=== PATIENT | female | born 1950 | race Two or more races ===

== ENCOUNTER 2017-02-15 01:06 | Observation (INO) | payer MEDICARE, OTHER ==
[~2017-02-15] VITALS: Ht 165.1 cm; Wt 80.7 kg
--- NOTE | ~2017-02-15 | CT16 ---
[facility] A Service of [facility] RADIOLOGY TEXT RESULTS PATIENT: CHRIS RIVERA LOCATION: [facility] 55-01 : [birth year] UNIT #: [id number] AGE: [address]: Genaro Nj MD SEX: F ORDER DR: [id number] [facility] [address] [place], [place] [address] [id number] I MR#: [id number] #: [id number] NAME: CHRIS RIVERA : 1950 SEX: F STUDY DATE/TIME: 02/15/2017 3:41 UNIT: [facility] ROOM: [facility] STUDY DESCRIPTION: CT Angio Chest for PE Attending Physician: Genaro Nj M.D. Ordering Physician: Chris Pack M.D. Primary Care Physician: Sarah Marc M.D. MEDICAL IMAGING REPORT This report is preliminary unless electronic signature is present EXAM CT chest with contrast, pulmonary arteriography protocol, 02/15/2017 HISTORY 66-year-old female in the ED with 1-day history of left side chest pain and shortness of air. Chest x-ray showing evidence of vascular congestion with mild interstitial edema. TECHNIQUE CT examination of the chest with IV contrast using pulmonary arteriography protocol. CTA images of the pulmonary arteries were reformatted as multiplanar MIP images. This CT exam was performed with one or more of the following radiation dose reduction techniques: automatic exposure control, adjustment of mA and/or kV according to patient size, and iterative reconstruction. FINDINGS No pulmonary embolism is demonstrated. Thoracic aorta is normal in caliber with no aneurysm or dissection. Mild cardiomegaly. No pericardial effusion. The lung images show mild diffuse interstitial and alveolar pulmonary edema, greatest in the lung bases along with tiny bilateral pleural effusions. Cardiogenic edema is likely. Mildly enlarged lymph nodes throughout the mediastinum and pulmonary efrain are nonspecific but are likely enlarged on the basis of lymphatic engorgement given the pulmonary findings. IMPRESSION 1. No evidence of pulmonary embolism. 2. Normal caliber thoracic aorta. 3. Mild cardiomegaly. No pericardial effusion. [facility] A Service of [facility] & [facility] RADIOLOGY TEXT RESULTS PATIENT: CHRIS RIVERA LOCATION: [facility] : [birth year] UNIT #: [id number] AGE: [address]: Genaro Nj MD SEX: F ORDER DR: 4. Mild diffuse interstitial and alveolar pulmonary edema with tiny bilateral pleural effusions. Congestive heart failure is favored. 5. Nonspecific mediastinal and hilar lymph node enlargement. This is likely on the basis of lymphatic engorgement given the cardiopulmonary findings. Similar findings were present on the previous study of 05/10/2015. Dictated by... Codey Ortega M.D. THIS IS AN ELECTRONICALLY VERIFIED REPORT Codey Ortega M.D. at 02/15/2017 9:58 PM Miri TD: 02/15/2017 10:47 JOB #: [id number] MEDICAL IMAGING REPORT Page 1 of 1 COPY
--- NOTE | ~2017-02-15 | EKG ---
PATIENT: CHRIS RIVERA UNIT #: [id number] Ventricular Rate: 60 BPM Atrial Rate: 57 BPM QRS Duration: 96 ms Q-T Interval: 438 ms QTC Calculation(Bezet): 438 ms Calculated R [place]: -16 degrees Calculated T [place]: 41 degrees Diagnosis Line: Atrial fibrillation Diagnosis Line: Low voltage QRS Diagnosis Line: Septal infarct , age undetermined Diagnosis Line: Abnormal ECG Diagnosis Line: No previous ECGs available Diagnosis Line: Confirmed by CINDY GRIFFITHS MD ([id number]) on 02/15/2017 Diagnosis Line: 7:17:23 PM INTERPRETING MD: AYE MILLER
--- NOTE | ~2017-02-15 | TH ---
Unit #: [id number] #: [id number] Patient: CHRIS RIVERA [id number] [address] [address] [id number] I MR#: [id number] NAME: CHRIS RIVERA : 1950 SEX: F STUDY DATE/TIME: 02/15/2017 UNIT: C5B ROOM: 559 STUDY DESCRIPTION: Nuclear Study Attending Physician: Genaro Nj M.D. Primary Care Physician: Sarah Marc M.D. CARDIOLOGY REPORT EXAM Lexiscan Cardiolite Stress Test - Nuclear Portion PROCEDURE Using technetium 99m labeled Cardiolite, rest and stress SPECT images were obtained. Multiple SPECT images were obtained in various views including horizontal and vertical long axis and short axis views of the left ventricle. Images were obtained by gated SPECT method. The patient was administered 11.11 mCi of Cardiolite at rest. The patient was administered 36.0 mCi of Cardiolite after Lexiscan infusion was completed. On the stress images, there is normal perfusion noted. The rest images show normal perfusion. Comparing rest and stress images, there is no stress-induced ischemia noted. The left ventricular ejection fraction is calculated to be 69%. There is no focal wall motion abnormality seen. CONCLUSION 1. No stress-induced ischemia noted. 2. The left ventricular ejection fraction is calculated to be 69%. 3. There is no focal wall motion abnormality seen. 4. Normal Lexiscan Cardiolite stress test. Dictated by... Tamiko Perera TD: 02/16/2017 06:24 JOB #: [id number] Unit #: [id number] #: [id number] Patient: CHRIS RIVERA CARDIOLOGY REPORT Page 1 of 1 X Noemi Rosenberg MD <ELECTRONICALLY SIGNED> 03/29/17 1524 CARDIOLOGY REPORT
--- NOTE | ~2017-02-15 | DS ---
Unit #: [id number] #: [id number] Patient: CHRIS RIVERA [id number] [address] [place], [place] [address] [id number] I MR#: [id number] NAME: CHRIS RIVERA ROOM: 559 Age: 66 Sex: F Admission Date: 02/15/2017 : 1950 Discharge Date: Attending Physician: Genaro Nj M.D. Primary Care Physician: Sarah Marc M.D. DISCHARGE SUMMARY SHORT STAY SUMMARY HISTORY OF PRESENT ILLNESS This is a 66-year-old [place]nian female who has been seen in the past by Dr. Rosenberg, although she never followed up in the office with her. She has a past history of permanent atrial fibrillation, hypertension, diabetes mellitus, hyperlipidemia, depression, and a thoracentesis in 2009 which was negative for malignancy. She also has a history of a Lexiscan Cardiolite stress test in December 2013 which was normal and an echocardiogram in December 2013 which showed an EF of 60%, mild TR, and mild to moderate mitral regurgitation. In addition, she has a history of diastolic congestive heart failure. She presented to the ER today with reports of chest pain lasting for about 45 minutes. She states the pain resolved on its own. She denied any radiating or any pain in her jaw or neck, and denied associated symptoms of shortness of breath or diaphoresis with the pain. She does have some dyspnea on exertion. A chest x-ray revealed mild cardiomegaly with some pulmonary edema. Her BNP was 172. Point of care troponin was less than 0.05, and her EKG was negative for ischemic changes. PAST MEDICAL HISTORY 1. Permanent atrial fibrillation, not on anticoagulation. 2. Hypertension. 3. Chronic diastolic congestive heart failure with an EF of 60% per echo in 2013. 4. Diabetes mellitus. 5. Hyperlipidemia. 6. Depression. 7. Lifetime nonsmoker. 8. Thoracentesis in 2009 negative for malignancy. 9. Negative Lexiscan stress test in December 2013. PAST SURGICAL HISTORY Right knee surgery. FAMILY HISTORY She denies a family history of premature coronary artery disease. SOCIAL HISTORY She is a lifetime nonsmoker. Denies alcohol and illicit drug use. She is Bosnian and speaks minimal Iraqi. The cardiac monitor technician phone was used to obtain the majority of the data. ALLERGIES Unit #: [id number] #: [id number] Patient: CHRIS RIVERA No known drug allergies. HOME MEDICATIONS 1. Atenolol 25 mg p.o. once daily. 2. Lisinopril 40 mg p.o. once daily. 3. Atorvastatin calcium 80 mg p.o. once daily. 4. Basaglar KwikPen 10 units once daily. 5. Donepezil hydrochloride 10 mg p.o. once daily. 6. Lasix 20 mg p.o. twice daily. 7. Paroxetine hydrochloride 20 mg p.o. once daily. 8. Metformin hydrochloride ER 1000 mg p.o. twice daily. 9. Norvasc 5 mg p.o. once daily. 10. Zofran ODT 4 mg p.o. every 8 hours as needed for nausea. REVIEW OF SYSTEMS A 10-point review of systems was conducted and was otherwise negative except for what was stated in the HPI. She denies palpitations, dizziness, lightheadedness, or diaphoresis. Positive for intermittent chest tightness, shortness of breath, and dyspnea on exertion. PHYSICAL EXAMINATION VITAL SIGNS: Temperature 98.7, heart rate 52, respirations 20, blood pressure 148/87, and O2 saturations 93% on 3 liters. GENERAL: This is a pleasant [place] female resting in bed in no acute distress. HEENT: Head is atraumatic and normocephalic. Pupils are equal and reactive to light. Mucous membranes are moist and intact. NECK: Supple. Trachea is midline. No JVD. LUNGS: Clear and diminished in bases. Nonlabored respirations. CARDIOVASCULAR: Heart sounds S1 and S2, irregularly irregular rhythm. No significant murmurs, rubs, or gallops. ABDOMEN: Soft, nontender, and nondistended. EXTREMITIES: Pulses are palpable. No pedal edema. No cyanosis. NEUROLOGIC: Alert and oriented x3. Moves all extremities equally and follows commands without difficulty. DIAGNOSTIC STUDIES LABORATORY: Sodium 139, potassium 4, chloride 101, BUN 10, creatinine 0.6, glucose 151, magnesium 1.4, AST 43, ALT 55, and alkaline phosphatase 50. BNP 172. Point of care troponin less than 0.05. Lipid profile: Cholesterol 175, triglycerides 136, LDL 103, and HDL 45. IMAGING: Chest x-ray shows mild cardiomegaly with vascular congestion. CT of the chest is negative for PE. It shows mild cardiomegaly and no pericardial effusion. Mild diffuse interstitial and alveolar pulmonary edema with tiny bilateral pleural effusions. CARDIOLOGY: EKG shows atrial fibrillation with a ventricular rate of 60 and nonspecific T wave abnormalities. ASSESSMENT 1. Permanent atrial fibrillation with controlled ventricular rate, not on anticoagulation. 2. Hypomagnesemia. 3. Chest pain, likely musculoskeletal. 4. Acute on chronic diastolic congestive heart failure, mild. 5. Diabetes mellitus. 6. Hypertension. Unit #: [id number] #: [id number] Patient: CHRIS RIVERA 7. Hyperlipidemia. PLAN 1. We will replace magnesium. 2. Continue statin and home antihypertensives. 3. Gently diurese with one dose of Lasix IV. 4. CHADS2-VASc score is greater than 4. We will start on Xarelto. We will ask Care Management to establish cost to patient. 5. A Lexiscan Cardiolite exercise stress test was conducted to rule out ischemic heart disease. The test was normal with no inducible ischemia per Dr. Rosenberg. 6. The patient's chest pain is resolved and has had no recurrence. She diuresed well with the Lasix and denies any shortness of breath or dyspnea on exertion. No signs of fluid overload. She is stable and ready for discharge home. We will discharge her home on an increased dose of Lasix. She has been given prescriptions for Xarelto and Lasix 40 mg once daily. 7. She is to follow up with Dr. Rosenberg in four to six weeks on April 04 at 1 p.m. 8. She is to follow up with her primary care physician in one to two weeks. DISPOSITION Discharge to home. CONDITION ON DISCHARGE Stable. Dictated by... Roselyn Pandey APRN for Tamiko Mcclellan TD: 02/15/2017 16:41 JOB #: [id number] DISCHARGE SUMMARY Page 1 of 1 X X DISCHARGE SUMMARY
--- NOTE | ~2017-02-15 | ST ---
Unit #: [id number] #: [id number] Patient: CHRIS RIVERA [id number] [address] [address] [id number] I MR#: [id number] NAME: CHRIS RIVERA : 1950 SEX: F STUDY DATE/TIME: 02/15/2017 UNIT: C5B ROOM: 559 STUDY DESCRIPTION: Stress Test Attending Physician: Genaro Nj M.D. Primary Care Physician: Sarah Marc M.D. CARDIOLOGY REPORT EXAM EKG Portion of a Lexiscan Cardiolite Stress Test REASON FOR EXAM Chest pain. DESCRIPTION Baseline EKG is A-fib with a ventricular rate of 59 and nonspecific T wave abnormalities. A total of 0.4 mg of Lexiscan was injected per protocol followed by Cardiolite. The patient's did not experience any symptoms. There were no significant ST changes or arrhythmias. The test was stopped due to protocol completion. IMPRESSION 1. This is a nondiagnostic test. 2. There were no ST segment changes. 3. The patient experienced no symptoms. 4. There were no arrhythmias. 5. Please correlate with Cardiolite imaging. Dictated by... Roselyn Pandey APRN for Tamiko Perera/maxine TD: 02/16/2017 06:00 JOB #: [id number] CARDIOLOGY REPORT Page 1 of 1 X CARDIOLOGY REPORT
--- NOTE | ~2017-02-15 | CR72 ---
[facility] A Service of [facility] & [facility] RADIOLOGY TEXT RESULTS PATIENT: CHRIS RIVERA LOCATION: [place] [id number] : [birth year] UNIT #: [id number] AGE: [address]: Genaro Nj MD SEX: F ORDER DR: [id number] [facility] [address] [facility]. [place], [place] [address] [id number] I MR#: [id number] Acc #: [id number] NAME: CHRIS RIVERA : 1950 SEX: F STUDY DATE/TIME: 02/15/2017 2:36 UNIT: [facility] ROOM: [facility] STUDY DESCRIPTION: CR Chest Single View Portable Attending Physician: Genaro Nj M.D. Ordering Physician: Chris Pack M.D. Primary Care Physician: Sarah Marc M.D. MEDICAL IMAGING REPORT This report is preliminary unless electronic signature is present EXAM Chest x-ray, 02/15/2017. HISTORY 66-year-old female in the ED complaining of a 3-4-day history of shortness of air, congestion and weakness.. TECHNIQUE AP portable chest x-ray. FINDINGS Mild cardiomegaly. Pulmonary venous redistribution and mild diffuse interstitial prominence suggests mild vascular congestion that is new or increased since the previous study of 05/21/2015. Probable trace bilateral pleural effusions. Shallow lung expansion. No visible airspace consolidation. IMPRESSION Cardiomegaly with likely mild vascular congestion. Dictated by... Codey Ortega M.D. THIS IS AN ELECTRONICALLY VERIFIED REPORT Codey Ortega M.D. at 02/15/2017 9:58 PM RGW/sagarw TD: 02/15/2017 10:35 JOB #: [id number] MEDICAL IMAGING REPORT [facility] A Service of [facility] RADIOLOGY TEXT RESULTS PATIENT: CHRIS RIVERA LOCATION: [place] [address] : [birth year] UNIT #: [id number] AGE: [address]: Genaro Nj MD SEX: F ORDER DR: Page 1 of 1 COPY
[~2017-02-15 01:06] MED LIST: AMLODIPINE BESYL5 MG PO; ASPIRIN PO; ATENOLOL PO; ATENOLOL25 MG PO; AVANDIA PO; DIABETA5 M1 PO; GLYNASE PO; HCTZ PO; HYDROCHLOROTHIA25 MG PO; K-DUR10 MEQ PO; LASIX20 MG PO; LEVAQUIN PO; LEVAQUIN750 M1 PO; LIPITOR PO; LIPITOR80 MG PO; LISINOPRIL PO; MELOXICAM15 MG PO; METFORMIN HCL1000 M1 PO; METFORMIN PO; NIASPAN PO; NORVASC PO; PAXIL PO; PRINIVIL40 MG PO; XARELTO20 MG PO
[2017-02-15 02:51] LABS: BASOPHIL# 0.1 X10e3 (0-0.3); BASOPHIL% 1.3 % (0-2.5); EOSINOPHIL# 0.1 X10e3 (0-0.7); EOSINOPHIL% 1.5 % (0.0-7.0); HEMATOCRIT 38.3 % (35.0-45.0); HEMOGLOBIN 12.7 gm/dL (12.0-16.0); LYMPHOCYTE# 2.1 X10e3 (1.0-3.5); LYMPHOCYTE% 27.6 % (17.0-45.0); MEAN CELL VOLUME 85.5 FL (83-96); MEAN CORPUSCULAR HEMOGLOBIN 28.4 PG (28-34); MEAN CORPUSCULAR HGB CONC 33.2 g/dL (30-36); MEAN PLATELET VOLUME 8.4 FL (6.5-11.5); MONOCYTE# 0.7 X10e3 (0-1.0); MONOCYTE% 9.1 % (3.0-12.0); NEUTROPHIL# 4.6 X10e3 (1.5-7.1); NEUTROPHIL% 60.5 % (40-75); PLATELET COUNT 327 X10e3 (140-420); RED BLOOD COUNT 4.48 X10e (3.90-5.30); WHITE BLOOD COUNT 7.6 X10e3 (4.0-10.5)
[2017-02-15 02:52] LABS: DIFF IND NO
[2017-02-15 02:58] LABS: POC - CKMB 5.2 ng/mL (0.0-7.9); POC - TROPONIN <0.05 ng/mL (<=0.05)
[2017-02-15 03:04] LABS: INR 1.2; PARTIAL THROMBOPLASTIN TIME 26.4 SECONDS (23.5-31.3); PROTHROMBIN TIME (PATIENT) 12.6 SECONDS (10.0-11.7)
[2017-02-15 03:25] LABS: ALBUMIN SERUM 3.2 g/dL (3.5-5.0); BILIRUBIN, DIRECT 0.1 mg/dL (0.0-0.2); BILIRUBIN,INDIRECT 0.5 mg/dL (0.0-0.9); BILIRUBIN,TOTAL 0.6 mg/dL (0.2-2.0); BUN/CREATININE RATIO 16.66; CALCIUM SERUM 9.1 mg/dL (8.4-10.2); CREATININE SERUM 0.6 mg/dL (0.6-1.4); GLOM FILT RATE Estimated 94.3 mL/min (>60); MAGNESIUM 1.4 mg/dL (1.6-3.0); PROTEIN TOTAL SERUM 7.5 g/dL (6.0-8.3)
[2017-02-15 05:38] LABS: POC - TROPONIN <0.05 ng/mL (<=0.05)
[2017-02-15 06:15] LABS: POC - TROPONIN <0.05 ng/mL (<=0.05)
[2017-02-15] MEDS ORDERED: PRINIVIL40 MG PO (06:23)
[2017-02-15] MEDS ORDERED: TENORMIN25 MG PO (06:23)
[2017-02-15] MEDS ORDERED: BASAGLAR K100 UNIT/1 SUBQ (06:23)
[2017-02-15] MEDS ORDERED: ATORVASTATIN CA80 MG PO (06:23)
[2017-02-15] MEDS ORDERED: LASIX20 MG PO (06:24)
[2017-02-15] MEDS ORDERED: PAROXETINE HCL20 MG PO (06:24)
[2017-02-15] MEDS ORDERED: DONEPEZIL HCL10 MG PO (06:24)
[2017-02-15] MEDS ORDERED: ZOFRAN ODT4 MG PO (06:25)
[2017-02-15] MEDS ORDERED: METFORMIN HCL1000 M1 PO (06:25)
[2017-02-15] MEDS ORDERED: NORVASC PO (06:25)
[2017-02-15 09:45] LABS: CHOLESTEROL 175 mg/dL (0-200); HDL CHOLESTEROL 45 mg/dL (35-95); LDL CHOLESTEROL 103 mg/dL (-130); LDL/HDL RATIO 2 RATIO (0-4); TRIGLYCERIDES 136 mg/dL (10-160)
[2017-02-15] MEDS ORDERED: FUROSEMIDE40 MG PO (15:52)
[2017-02-15] MEDS ORDERED: MAG-OX 400400 M1 PO (16:02)
[2017-02-15] MEDS ORDERED: XARELTO20 MG PO (16:03)
== END 2017-02-15 17:15 | disposition home or self-care (01) ==
LOC: CED 01:06 → CEDOF 05:01 → CED 05:01 → CEDOF 05:30 → C5B 08:10
PROVIDERS: Emergency Medicine; Internal Medicine Cardiovascular Disease
DX: I48.2 Chronic atrial fibrillation (principal); R07.9 Chest pain, unspecified; I11.0 Hypertensive heart disease with heart failure; I50.33 Acute on chronic diastolic (congestive) heart failure; E83.42 Hypomagnesemia; I51.7 Cardiomegaly; J90 Pleural effusion, not elsewhere classified; J81.1 Chronic pulmonary edema; R59.0 Localized enlarged lymph nodes; E11.9 Type 2 diabetes mellitus without complications; Z79.84 Long term (current) use of oral hypoglycemic drugs; E78.5 Hyperlipidemia, unspecified; Z79.899 Other long term (current) drug therapy; Z98.890 Other specified postprocedural states; F32.9 Major depressive disorder, single episode, unspecified
CPT/HCPCS: 36415; 71010; 71275; 78452; 80048; 80061; 80076; 82553; 83735; 83880; 84484; 85025; 85610; 85730; 90732; 93005; 93017; 99285; A9500; G0009; G0378; J1940; J2785; Q9967

== ENCOUNTER 2017-02-17 19:10 | Emergency (ER) | payer MEDICARE, OTHER ==
--- NOTE | ~2017-02-17 | US85 ---
[facility] A Service of [facility] RADIOLOGY TEXT RESULTS PATIENT: CHRIS RIVERA LOCATION: [place] : [birth year] UNIT #: [id number] AGE: [address]: Mike Brannon MD SEX: F ORDER DR: [id number] [facility] [address] [place], [place] [address] [id number] E MR#: [id number] Acc #: [id number] NAME: CHRIS RIVERA : 1950 SEX: F STUDY DATE/TIME: 02/17/2017 22:06 UNIT: [place] ROOM: STUDY DESCRIPTION: [employer] Attending Physician: Lui Brannon M.D. Ordering Physician: Curt Santillan M.D. Primary Care Physician: Sarah Marc M.D. MEDICAL IMAGING REPORT This report is preliminary unless electronic signature is present EXAM Left lower extremity venous duplex Doppler. INDICATION Left lower extremity pain and foot swelling for 1 week. COMPARISON None available. TECHNIQUE Venous ultrasound examination of the left lower extremity was performed using grayscale, spectral Doppler and color flow Doppler imaging. FINDINGS The examination is negative. There is no evidence of left lower extremity deep venous thrombus from the groin to the lower calf. Visualized greater saphenous vein is also patent. IMPRESSION Negative examination. No evidence of left lower extremity deep venous thrombosis. Dictated by... Edmond Levy M.D. THIS IS AN ELECTRONICALLY VERIFIED REPORT Edmond Levy M.D. at 02/18/2017 7:52 PM Mustapha/noe TD: 02/18/2017 19:22 JOB #: [id number] [facility] A Service of [facility] RADIOLOGY TEXT RESULTS PATIENT: CHRIS RIVERA LOCATION: [place] : [birth year] UNIT #: [id number] AGE: [address]: Mike Brannon MD SEX: F ORDER DR: MEDICAL IMAGING REPORT Page 1 of 1 COPY
--- NOTE | ~2017-02-17 | CR20 ---
[facility] A Service of [facility] RADIOLOGY TEXT RESULTS PATIENT: CHRIS RIVERA LOCATION: [facility] : [birth year] UNIT #: [id number] AGE: [address]: Mike Brannon MD SEX: F ORDER DR: [id number] [facility] [address] [place], [place] [address] [id number] E MR#: [id number] Acc #: [id number] NAME: CHRIS RIVERA : 1950 SEX: F STUDY DATE/TIME: 02/17/2017 20:43 UNIT: [facility] ROOM: STUDY DESCRIPTION: CR Ankle Min 3 Views Lt Attending Physician: Lui Brannon M.D. Ordering Physician: Ed Jacobo Santillan M.D. Primary Care Physician: Sarah Marc M.D. MEDICAL IMAGING REPORT This report is preliminary unless electronic signature is present EXAM Left ankle. INDICATION Left ankle pain and swelling. FINDINGS Three views of the left ankle without comparison. There is no acute fracture or dislocation. Alignment is anatomic. There is no foreign body. There is some soft tissue swelling. IMPRESSION Negative left ankle. Dictated by... Edmond Levy M.D. THIS IS AN ELECTRONICALLY VERIFIED REPORT Edmond Levy M.D. at 02/18/2017 7:51 PM NOLAN/noe TD: 02/18/2017 18:53 JOB #: [id number] MEDICAL IMAGING REPORT Page 1 of 1 COPY
--- NOTE | ~2017-02-17 | CR72 ---
[facility] A Service of [facility] & [facility] RADIOLOGY TEXT RESULTS PATIENT: CHRIS RIVERA LOCATION: [facility] : [birth year] UNIT #: [id number] AGE: [address]: Mike Brannon MD SEX: F ORDER DR: [id number] [facility] [address] [place], [place] [address] [id number] E MR#: [id number] Acc #: [id number] NAME: CHRIS RIVERA : 1950 SEX: F STUDY DATE/TIME: 02/17/2017 2313 UNIT: [facility] ROOM: STUDY DESCRIPTION: CR Chest Single View Portable Attending Physician: Lui Brannon M.D. Ordering Physician: Lui Brannon M.D. Primary Care Physician: Sarah Marc M.D. MEDICAL IMAGING REPORT This report is preliminary unless electronic signature is present EXAM Portable chest, 02/17 at 2313. INDICATION Cough, congestion and shortness of air started today. FINDINGS AP portable chest compared with 02/15/2017. Heart remains enlarged. There is vascular congestion and presumed pulmonary edema. Findings are relatively stable. There are small bilateral pleural effusions. No pneumothorax. Dictated by... Luis Antonio Ceron Jr., M.D. THIS IS AN ELECTRONICALLY VERIFIED REPORT Luis Antonio Ceron Jr., M.D. at 02/19/2017 3:12 AM LAURA/noe TD: 02/18/2017 19:53 JOB #: [id number] MEDICAL IMAGING REPORT Page 1 of 1 COPY
[~2017-02-17 19:10] MED LIST changes: +ATORVASTATIN CA80 MG PO; +BASAGLAR K100 UNIT/1 SUBQ; +DONEPEZIL HCL10 MG PO; +FUROSEMIDE40 MG PO; +MAG-OX 400400 M1 PO; +PAROXETINE HCL20 MG PO; +TENORMIN25 MG PO; +ZOFRAN ODT4 MG PO
[2017-02-17 20:36] LABS: BASOPHIL% 0.4 % (0-2.5); EOSINOPHIL% 0.2 % (0.0-7.0); HEMATOCRIT 37.3 % (35.0-45.0); HEMOGLOBIN 12.2 gm/dL (12.0-16.0); LYMPHOCYTE# 1.9 X10e3 (1.0-3.5); LYMPHOCYTE% 17.6 % (17.0-45.0); MEAN CELL VOLUME 85.8 FL (83-96); MEAN CORPUSCULAR HEMOGLOBIN 28.1 PG (28-34); MEAN CORPUSCULAR HGB CONC 32.8 g/dL (30-36); MEAN PLATELET VOLUME 8.3 FL (6.5-11.5); MONOCYTE# 1.4 X10e3 (0-1.0); MONOCYTE% 12.8 % (3.0-12.0); NEUTROPHIL# 7.6 X10e3 (1.5-7.1); PLATELET COUNT 337 X10e3 (140-420); RED BLOOD COUNT 4.35 X10e (3.90-5.30); RED CELL DISTRIBUTION WIDTH 14.1 % (11.0-15.5)
[2017-02-17 20:41] LABS: DIFF IND NO
[2017-02-17 20:54] LABS: CALCIUM SERUM 8.8 mg/dL (8.4-10.2); CREATININE SERUM 0.5 mg/dL (0.6-1.4); GLOM FILT RATE Estimated 100.2 mL/min (>60)
== END 2017-02-18 | disposition home or self-care (01) ==
LOC: CED 19:10
PROVIDERS: Emergency Medicine
DX: M25.572 Pain in left ankle and joints of left foot (principal); I50.9 Heart failure, unspecified
CPT/HCPCS: 29515; 36415; 71010; 73610; 80048; 83880; 85025; 93971; 99284